=== PATIENT | male | born 1940 | race Caucasian/White ===

== ENCOUNTER → 2020-12-23 | Outpatient (CLI) | payer MEDICARE ==
--- NOTE | 2020-12-23 12:50 | NM ---
EXAMINATION TYPE: NM bone scan whole body DATE OF EXAM: 12/23/2020 COMPARISON: NONE HISTORY: C 62, prostate carcinoma Delayed whole-body scanning was performed following the injection of 24.1 mCi Tc 99m MDP. Images acq uired 3.5 hours post injection. Spot images obtained over the chest and pelvis. FINDINGS: There is uptake within the feet, ankles, knees, sternoclavicular joints, shoulders and spine which is likely degenerative. Soft tissue uptake is normal. No areas of abnormal increased or decreased uptak e to suggest metastatic disease. Uptake in the maxilla and mandible likely due to periodontal disease . IMPRESSION: Metastatic disease is not evident. 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
== END | disposition home or self-care (01) ==
LOC: RADNMMAIN 12-16 10:29
PROVIDERS: ATTEND Urology
DX: C61 Malignant neoplasm of prostate (principal)
CPT/HCPCS: 78306; A9503

== ENCOUNTER → 2020-12-29 | Outpatient (CLI) | payer MEDICARE | END | disposition home or self-care (01) | LOC: RADMRIMAIN 08:16 | PROVIDERS: ATTEND Urology | DX: Z53.9 Procedure and treatment not carried out, unspecified reason (principal) ==

== ENCOUNTER → 2021-01-21 | Outpatient (CLI) | payer MEDICARE ==
[2021-01-21 07:36] LABS: African American GFR (CKD) >90 (>60 ml/min/1.73 sqM); Blood Urea Nitrogen 23 mg/dL (9-20); Non-African American GFR(CKD) 83 (>60 ml/min/1.73 sqM)
--- NOTE | 2021-01-21 08:59 | CT ---
EXAMINATION TYPE: CT abdomen pelvis w con DATE OF EXAM: 01/21/2021 COMPARISON: 07/13/2012 HISTORY: Prostate Cancer CT DLP: 2142.50 mGycm CONTRAST: CT scan of the abdomen and pelvis is performed without Oral Contrast and with IV Contrast, patient in jected with 100 ml mL of Isovue 300. FINDINGS: LUNG BASES-: No visible nodule. No infiltrate. LIVER/GB: No calcified gallstones. Hepatic steatosis noted. No space occupying hepatic lesion. Kemal iary tree is of normal caliber. PANCREAS: No inflammation. No distinct mass. SPLEEN: No splenic enlargement. No lesion seen. ADRENALS: No nodule. No thickening. KIDNEYS/BLADDER: No hydronephrosis. No nephrolithiasis. No distinct renal mass. Urinary bladder g rossly unremarkable. BOWEL: Normal appendix. Normal bowel caliber. No inflammation. GENITAL ORGANS: Prostate calcifications. Periprosthetic fat planes are well preserved. LYMPH NODES: No greater than 1cm abdominal or pelvic lymph nodes are appreciated. AORTA: No significant abnormality. OSSEOUS STRUCTURES: Degenerative changes lumbar spine. OTHER: No significant additional abnormality is seen. IMPRESSION: 1. Fatty liver. 2. No evidence for metastatic disease at this time.
== END | disposition home or self-care (01) ==
LOC: RADCTMAIN 06:39
PROVIDERS: ATTEND Urology
DX: C61 Malignant neoplasm of prostate (principal); K76.0 Fatty (change of) liver, not elsewhere classified
CPT/HCPCS: 82565; 84520; 74177; 36415; Q9967

== ENCOUNTER 2022-04-08 09:14 | Emergency (ER) | payer MEDICARE ==
[2022-04-08 10:25] LABS: Appearance,Urine Cloudy (Clear); Bilirubin,Urine Negative (Negative); Blood,Urine Large (Negative); Color,Urine Yellow; Glucose,Urine (UA) Negative (Negative); Ketones,Urine Negative (Negative); Leukocyte Esterase,Urine Large (Negative); Mucus,Urine Rare /hpf; Nitrite,Urine Negative (Negative); Protein,Urine 2+ (Negative); RBC,Urine 70 /hpf (0-5); Specific Gravity,Urine 1.017 (1.001-1.035); Squamous Epithelial Cell,Urine 9 /hpf (0-4); WBC,Urine >182 /hpf (0-5)
[2022-04-08] MEDS ORDERED: cefTRIAXone IN SWFI 1,000 MG/10 ML SYRINGE IVP STA (10:50)
--- NOTE | 2022-04-08 11:05 | ED ---
Male Urogenital HPI - General Chief complaint: Urogenital Stated complaint: urogenital, URI Time Seen by Provider: 04/08/22 09:25 Source: patient, RN notes reviewed Mode of arrival: ambulatory Limitations: no limitations - History of Present Illness Initial comments: 81-year-old male presents emergency Department with chief complaint of dysuria. Patient states symptoms just started. Patient states he has urinary frequency and painful urination minimal lower abdominal pressure no flank pain no fevers chills no weakness or chest pain or shortness breath no other associated complaints. - Related Data Previous Rx's Medication Instructions Recorded Cephalexin [Keflex] 500 mg PO Q8HR #30 cap 04/08/22 Allergies Allergy/AdvReac Type Severity Reaction Status Date / Time No Known Allergies Allergy Verified 04/08/22 09:36 Review of Systems ROS Statement: Those systems with pertinent positive or pertinent negative responses have been documented in the HPI. ROS Other: All systems not noted in ROS Statement are negative. Past Medical History Past Medical History: Cancer, Hypertension, Prostate Disorder Additional Past Medical History / Comment(s): prostate CA History of Any Multi-Drug Resistant Organisms: None Reported Past Surgical History: Prostate Surgery Past Psychological History: No Psychological Hx Reported Smoking Status: Never smoker Past Alcohol Use History: Daily Past Drug Use History: None Reported General Exam Limitations: no limitations General appearance: alert, in no apparent distress Head exam: Present: atraumatic, normocephalic, normal inspection Respiratory exam: Present: normal lung sounds bilaterally. Absent: respiratory distress, wheezes, rales, rhonchi, stridor Cardiovascular Exam: Present: regular rate, normal rhythm, normal heart sounds. Absent: systolic murmur, diastolic murmur, rubs, gallop, clicks GI/Abdominal exam: Present: soft, normal bowel sounds. Absent: distended, tenderness, guarding, rebound, rigid Back exam: Absent: CVA tenderness (R), CVA tenderness (L) Neurological exam: Present: alert Skin exam: Present: warm, dry, intact, normal color. Absent: rash Course Vital Signs 04/08/22 04/08/22 09:32 11:27 Temperature 98.1 F 98.6 F Pulse Rate 95 90 Respiratory 20 18 Rate Blood Pressure 194/80 126/78 O2 Sat by Pulse 95 100 Oximetry Medical Decision Making - Medical Decision Making Patient has evidence urinary tract infection patient was given Rocephin was discharged and oral antibiotics return parameters were discussed. - Lab Data Lab Results 04/08/22 Range/Units 10:06 Urine Color Yellow Urine Appearance Cloudy (Clear) Urine pH 6.0 (5.0-8.0) Ur Specific [place] 1.017 (1.001-1.035) Urine Protein 2+ H (Negative) Urine Glucose (UA) Negative (Negative) Urine Ketones Negative (Negative) Urine Blood Large H (Negative) Urine Nitrite Negative (Negative) Urine Bilirubin Negative (Negative) Urine Urobilinogen 3.0 (<2.0) mg/dL Ur Leukocyte Esterase Large H (Negative) Urine RBC 70 H (0-5) /hpf Urine WBC >182 H (0-5) /hpf Ur Squamous Epith Cells 9 H (0-4) /hpf Urine Mucus Rare H (None) /hpf Disposition Clinical Impression: UTI (urinary tract infection) Disposition: HOME SELF-CARE Condition: Stable Instructions (If sedation given, give patient instructions): Urinary Tract Infection in Men (ED) Additional Instructions: Please return to the Emergency Department if symptoms worsen or any other concerns. Prescriptions: Cephalexin [Keflex] 500 mg PO Q8HR #30 cap Is patient prescribed a controlled substance at d/c from ED?: No Referrals: Yas Lilly MD [Primary Care Provider] - 1-2 days Time of Disposition: 11:05
[2022-04-08 11:28] VITALS: BP 126/78; PULSE 90; RESP 18; TEMP 98.6
== END 2022-04-08 11:28 | disposition home or self-care (01) ==
LOC: EC 09:14
DX: N39.0 Urinary tract infection, site not specified (principal); I10 Essential (primary) hypertension; Z85.46 Personal history of malignant neoplasm of prostate
CPT/HCPCS: 81001; 87086; 99283; 96374; J0696

== ENCOUNTER → 2022-05-10 | Outpatient (CLI) | payer MEDICARE ==
--- NOTE | 2022-05-10 09:08 | MR ---
EXAMINATION TYPE: MR Prostate wo/w con DATE OF EXAM: 05/10/2022 COMPARISON: Bone scan December 23, 2020. CT abdomen and pelvis January 21, 2021 IMAGE QUALITY: . INDICATION: Malignant neoplasm prostate PSA: 4.70 ng/ml on October 06, 2021 Recent Biopsy and Date: February 03, 2021 Pathology Report (If Applicable): Right lateral mid adenocarcinoma [place] grade 3+3 = 6, 30% of tiss ue measuring 2.5 mm in length. Adenocarcinoma right mid [place] grade 3+3 = 615, % of tissue measurin g 1.5 mm length. Right lateral apex adenocarcinoma [place]vin[place] grade 3+4 = 7, approximately 80% of tissue measuring 5 mm in length. Right apex adenocarcinoma [place] grade 3+4 = 7 approximate 80% of the tis [place] measuring 7 mm in length. Left lateral base adenocarcinoma, [place] grade 3+3 = 6, 5% of tissue m easuring less than 1 mm. Left base adenocarcinoma [place]vin[place] grade 3+4 = 730, % of tissue measuring 2 mm in length. Left lateral mid adenocarcinoma [place]vinash grade 3+4 = 7, approximately 30% of tissue measur ing 2.5 mm in length. Left mid adenocarcinoma [place] grade 3+4 = 7, 80% of tissue measuring 7.5 mm i n length. Left lateral apex adenocarcinoma [place] grade 3+4 = 7, approximately 80% of tissue measuri ng 6.5 mm in length. Adenocarcinoma left apex squeezing grade 3+4 = 7, approximately 90% of tissue me asuring 6 mm in length TECHNIQUE: Examination was performed using a 3T MRI without an endorectal coil. Multiparametric imaging was perf ormed with T2 mutliplanar sequences, axial diffusion weighted imaging and dynamic contrast enhanced i maging, utilizing 12 mL intravenous Gadavist gadolinium contrast. FINDINGS: PROSTATE VOLUME: 5.2 cm SI x 3.6 cm AP x 4.4 cm LR Vol= 43.13 cc PSA DENSITY: 0.11 ng/ml/cc Prostate gland is slightly enlarged in size with poor distinction of transitional from peripheral zon e. No areas of suspicious diminish signal on ADC mapping in the posterior periphery. Thin-walled cyst in the left lateral mid zone. No areas of restricted diffusion. Central areas show no suspicious are as of well-defined or indistinct T2 hypointensity. Seminal vesicles appear within normal limits coron al Image 21. Prostate capsule is maintained. Urinary bladder shows mild wall trabeculation. Visualized osseous structures are intact. Mild wall th ickening in the sigmoid colon is present. IMPRESSION: A focus of clinically significant cancer is not identified. Highest Assessment Category: 2 MRI Stage: T1c N0 M0 based on review of pelvic images. False negative rates for MRI range from 5-20% depending on risk profile. Assessment Categories: 1 ? Very low (clinically significant cancer is highly unlikely to be present) 2 ? Low (clinically significant cancer is unlikely to be present) 3 ? Intermediate (the presence of clinically significant cancer is equivocal) 4 ? High (clinically significant cancer is likely to be present) 5 ? Very high (clinically significant cancer is highly likely to be present)
== END | disposition home or self-care (01) ==
LOC: RADMRIMAIN 07:17
PROVIDERS: ATTEND Urology
DX: C61 Malignant neoplasm of prostate (principal)
CPT/HCPCS: 72197; A9585

== ENCOUNTER → 2023-05-24 | Outpatient (CLI) | payer MEDICARE ==
--- NOTE | 2023-05-24 10:44 | XR ---
EXAMINATION TYPE: XR lumbosacral spine 5 views DATE OF EXAM: 05/24/2023 Comparison: None Clinical History: 82-year-old male [id number] LT SCIATICA Findings: Moderate multilevel degenerative disc disease. Hypertrophic facet arthropathy especially mid to lower lumbar spine. Prostatic calcifications throughout the abdominal aorta. Vertebral body heights are preserved and ali gnment is maintained though there is straightening of the normal lumbar lordosis. 5 lumbar type verte bral bodies. Impression: Moderate multilevel degenerative disc disease and endplate spondylosis. Hypertrophic facet arthropath y especially mid to lower lumbar spine. No vertebral compression collapse or malalignment.
== END | disposition home or self-care (01) ==
LOC: RADXRYALE 09:29
PROVIDERS: ATTEND Internal Medicine
DX: M51.16 Intervertebral disc disorders with radiculopathy, lumbar region (principal); M47.26 Other spondylosis with radiculopathy, lumbar region
CPT/HCPCS: 72110